=== PATIENT | male | born 1995 | race Caucasian/White ===

== ENCOUNTER 2019-03-18 11:10 | Emergency (ER) | payer OTHER ==
[~2019-03-18] VITALS: Ht 185.4 cm; Wt 84.1 kg
[2019-03-18 11:31] VITALS: BP 136/86; PULSE 94; TEMP 98
[2019-03-18] MEDS ORDERED: CEPHALEXIN500 M1 PO (13:07)
[2019-03-18] MEDS ORDERED: CRUTCHES MC (13:07)
== END 2019-03-18 13:40 | disposition home or self-care (01) ==
LOC: COL.ER 11:10
DX: S91.312A Laceration without foreign body, left foot, initial encounter (principal); Z23 Encounter for immunization; W26.8XXA Contact with other sharp object(s), not elsewhere classified, initial encounter; Y92.009 Unspecified place in unspecified non-institutional (private) residence as the place of occurrence of the external cause